=== PATIENT | female | born 1950 | race Two or more races ===

== ENCOUNTER 2024-10-31 13:23 | Outpatient (AMB) | payer MEDICARE, OTHER, SELFPAY ==
--- NOTE | 2024-10-31 14:12 | ORTHONT_ITS ---
Vital signs 10/31/24 14:26 BP 150/78 H Blood Pressure Source Automatic Cuff Blood Pressure Location Right Upper Arm Position Sitting Respiration 18 Pulse 90 Pulse Source Monitor Temp 97.8 F Temp Source Temporal Artery Scan Pulse Oximetry (%) 96 Oxygen Delivery Method Room Air Med/Allergies Allergies & Medications Allergies No Known Drug Allergies Allergy (Verified 10/31/24 14:26) Medication Reconciliation No Known Home Medications 10/31/24 [History Confirmed 10/31/24] Exam Exam Breathing is nonlabored. Patient has a normal mood and affect. Bilateral extremities were evaluated and demonstrates sensation intact to light touch. Palpable pedal pulses are present. No significant edema is present. Bilateral hips were examined. The patient has no pain with log roll of the hips. Internal rotation to 30 degrees and external rotation to 30 degrees is painless. Negative FADIR. Left knee was examined today. The left knee is in valgus alignment. Range of motion 0 to 110 degrees. She is tender to palpation diffusely The right knee was also examined. The right knee is in Valgus alignment. Range of motion from 0-115 degrees. Knee is stable to varus and valgus as well as AP translation with <5mm. Patient has a negative McMurrays. There is no pain with patellofemoral compression and no crepitus noted. The knee is tender to palpation Laterally Janice is a pleasant 74-year-old female with bilateral knee pain and bilateral knee arthritis. I reviewed x-rays from [facility]. This demonstrates bilateral lateral joint space narrowing and arthritis. She is in a wheelchair at this time and really struggles. She is significant valgus deformi ty. We thus discussed total knee replacement is a reasonable option. She has had over 10 injections on the right. We thus discussed total knee replacement as a reasonable option Assessment and Plan Problem List (1) Degenerative arthritis of knee, bilateral: Status: Acute Plan Janice is a pleasant 74-year-old female with bilateral knee pain and bilateral knee arthritis. I reviewed x-rays from [facility]. This demonstrates bilateral lateral joint space narrowing and arthritis. She is in a wheelchair at this time and really struggles. She is significant valgus deformity. We thus discussed total knee replacement is a reasonable option. She has had over 10 injections on the right. We thus discussed total knee replacement as a reasonable option The nature and purpose of the total knee replacement, alternative method(s) of treatment, the material risks involved, and the possibility of complications were fully explained to the patient. The patient does NOT have any of the following contraindications to TKA: - Active infection of the knee joint, OR - Active systemic bacteremia, OR - Active skin infection or open wound at surgical site, OR - Neuropathic arthritis, OR - Severe, rapidly progressive neurological disease, OR - Severe medical condition that makes risks of surgery outweigh the potential benefit The patient was told the most common risks and complications associated with a total knee replacement include, but are not limited to: blood clots in the leg, fatal pulmonary embolism, dislocation of the prosthesis, intraoperative and postoperative fractures of the femur or tibia, infection, failure of the prosthesis or grafting materials, complications from anesthesia, reactions to blood transfusions, postoperative leg length inequality, instability of the knee replacement, nerve damage or injury, vascular injury, delayed wound healing, infection, other injury or even . In addition, there are risks associated with anesthesia given during this operation. Also, the patient was told that after undergoing a total knee replacement there may still be persistent pain or disability. The patient was informed that the success of this operation in part depends upon the mechanical devices which are going to be implanted and that these devices can fail or malfunction, and may need to be repaired or replaced and there are no guarantees as to the longevity of this device or its parts and that it or its parts could fail prematurely. The patient was also notified that during the course of surgery, there may be a need to use bone graft from donors, and that any bone graft used will be carefully screened for communicable diseases, including AIDS, hepatitis, Armando-Creutzfeldt, or other diseases, but despite the screening procedures, there is a small chance that they could contract one of these diseases. Finally, the patient was asked to follow completely and fully with all advice and recommended treatments, and that recovery and ultimate outcome are affected by their compliance with recommended treatment. We discussed the risks, benefits and treatment alternatives, and the patient is interested in proceeding with surgery. We will try to set this up as expeditiously as possible. Advanced Care Planning Discussion Advance care planning discussed with:: patient Office Procedures GNS Level of Care Nursing/Assessment Patient Status: Established Patient Nursing Assessment/Reassesment: Medication Reconciliation, Update PMH in EMR and Vital Signs Coordination of Care: Complex Care and Chronic Disease 1-5, Education Complex Pt/Fam, Consent,records obtained, informed consent, Lab and Imaging orders, Results/Orders obtained and Staff clarify orders Established Patient Charge Established Patient Point Assignment: 110 Established Patient Point Charge: EP Level 3 (80-115) MA Intake Visit Data Collection New Patient or Established: New Patient (never been to [facility]) Reason for Visit:: KNEE PAIN Seen by Clinical Staff ONLY (RN/MA): No Verbal consent obtained for Telemed visit?: No Commissary Production Supervisor Required: No PCP or OBGYN visit in last 3 months: Yes Hx Now: No Do You Feel Safe at Home: Yes Authorities Contacted: N/A Questionairres Past Medical History Past Medical History Have you ever been diagnosed with any of the following: Subjective Visit Visit for: new patient and knee Immunization / Flu Flu Vaccine in the Last 12 Months: No Flu Vaccine Exclusion Criteria: Refused by Patient History of Present Illness Chief complaint: Janice is a pleasant 74-year-old female presenting to clinic with bilateral knee pain.Patient reports that knee pain has been present since 1994 and that she has been diagnosed with osteoarthritis.Patient reports she has used steroid Injections in the past to manage the painPatient reports she no longer uses steroid injections because they stopped working. Patient uses a walker at home and uses a wheelchair if she leaves the house. Patient is requesting bilateral total knee replacements. The right side is worse than the left Personal History Occupation: DISABLED Red flag PMH: none BMI Counceling provided: No Pain Pain level (0-10): 6 Pain duration: COMES AND GOES Pain location: inside (medial), outside (lateral), anterior and posterior Pain quality: sharp, dull, aching and burning Pain timing: increases with activity Ambulatory data Ambulatory device: none Treatments Improvement with previous injections: No Improvement with PT: No Improvement with NSAIDS: yes Review of Systems Review of Systems: All systems negative unless otherwise noted in HPI.
[2024-10-31 14:26] VITALS: BP 150/78; PULSE 90; RESP 18; TEMP 36.6; O2SAT 96
== END 2024-10-31 14:36 | disposition home or self-care (01) ==
PROVIDERS: PCP Family Medicine; Referring Provider Family Medicine; Supervising Provider Orthopaedic Surgery Adult Reconstructive Orthopaedic Surgery; Visit Provider Orthopaedic Surgery Adult Reconstructive Orthopaedic Surgery
DX: M17.0 Bilateral primary osteoarthritis of knee (principal); M25.562 Pain in left knee; M25.561 Pain in right knee; Z99.3 Dependence on wheelchair; M21.00 Valgus deformity, not elsewhere classified, unspecified site
CPT/HCPCS: 99213; G0463

== ENCOUNTER 2024-12-19 13:41 | Outpatient (AMB) | payer MEDICARE, OTHER, SELFPAY ==
[2024-12-19 14:03] VITALS: BP 142/74; PULSE 76; RESP 18; TEMP 36.3; O2SAT 97; BMI 36.1
--- NOTE | 2024-12-19 14:03 | PD.ORTHCLVIS ---
Vital signs 12/19/24 14:03 Height 1.52 m Height Method Stated Weight 83.915 kg Weight Measurement Method Estimated by Patient BMI 36.1 BP 142/74 H Blood Pressure Source Automatic Cuff Blood Pressure Location Left Upper Arm Position Sitting Respiration 18 Pulse 76 Pulse Source Monitor Temp 97.3 F Temp Source Temporal Artery Scan Pulse Oximetry (%) 97 Oxygen Delivery Method Room Air Med/Allergies Allergies & Medications Allergies No Known Drug Allergies Allergy (Verified 12/19/24 14:04) Medication Reconciliation No Known Home Medications 10/31/24 [History Confirmed 12/19/24] Exam Exam Breathing is nonlabored. Patient has a normal mood and affect. Bilateral extremities were evaluated and demonstrates sensation intact to light touch. Palpable pedal pulses are present. No significant edema is present. Bilateral hips were examined. The patient has no pain with log roll of the hips. Internal rotation to 30 degrees and external rotation to 30 degrees is painless. Negative FADIR. Left knee was examined today. The left knee is in valgus alignment. Range of motion 0 to 110 degrees. She is tender to palpation diffusely The right knee was also examined. The right knee is in Valgus alignment. Range of motion from 0-115 degrees. Knee is stable to varus and valgus as well as AP translation with <5mm. Patient has a negative McMurrays. There is no pain with patellofemoral compression and no crepitus noted. The knee is tender to palpation Laterally Janice is a pleasant 74-year-old female with bilateral knee pain and bilateral knee arthritis. I reviewed x-rays from [facility]. This demonstrates bilateral lateral joint space narrowing and arthritis. She is in a wheelchair at this time and really struggles. She is significant valgus deformity. We thus discussed total knee replacement is a reasonable option. She has had over 10 injections on the right. We thus discussed total knee replacement as a reasonable option Assessment and Plan Problem List (1) Degenerative arthritis of knee, bilateral: Status: Acute Plan Janice is a pleasant 74-year-old female with bilateral knee pain and bilateral knee arthritis. I reviewed x-rays from [facility]. This demonstrates bilateral lateral joint space narrowing and arthritis. She is in a wheelchair at this time and really struggles. She is significant valgus deformity. We thus discussed total knee replacement is a reasonable option. She has had over 10 injections on the right. We thus discussed total knee replacement as a reasonable option. We are currently still waiting for medical clearance. I would like to get new x-rays as it has been quite a while Advanced Care Planning Discussion Advance care planning discussed with:: patient Office Procedures GNS Level of Care Nursing/Assessment Patient Status: Established Patient Nursing Assessment/Reassesment: Medication Reconciliation, Update PMH in EMR and Vital Signs Coordination of Care: Complex Care and Chronic Disease 1-5, Education Complex Pt/Fam, Consent,records obtained, informed consent, Results/Orders obtained and Staff clarify orders Established Patient Charge Established Patient Point Assignment: 95 Established Patient Point Charge: EP Level 3 (80-115) MA Intake Visit Data Collection New Patient or Established: Established Patient (seen at [facility] within 3 years) Reason for Visit:: PRE OP R KNEE TKA Train Announcer Required: No PCP or OBGYN visit in last 3 months: Yes Hx Now: No Do You Feel Safe at Home: Yes Authorities Contacted: N/A Questionairres Past Medical History Past Medical History Have you ever been diagnosed with any of the following: Respiratory Problems Smoking: No Smoking Cessation Counseling: No Smoking Exposure: No Subjective Visit Visit for: follow up visit, knee and other (specify) (PRE OP ) Immunization / Flu Flu Vaccine in the Last 12 Months: No Flu Vaccine Exclusion Criteria: No Exclusion Criteria History of Present Illness Chief complaint: Janice is a pleasant 74-year-old female presenting to clinic with bilateral knee pain.Patient reports that knee pain has been present since 1994 and that she has been diagnosed with osteoarthritis.Patient reports she has used steroid Injections in the past to manage the painPatient reports she no longer uses steroid injections because they stopped working. Patient uses a walker at home and uses a wheelchair if she leaves the house. Patient is requesting bilateral total knee replacements. The right side is worse than the left Personal History Occupation: DISABLED Red flag PMH: none BMI Counceling provided: No Pain Pain level (0-10): 4 Pain duration: WITH MOVEMENT Pain location: inside (medial) and anterior Pain quality: dull and aching Pain timing: increases with activity and stairs Ambulatory data Ambulatory device: other (specify) (WHEEL CHAIR) Treatments Improvement with previous injections: No Improvement with PT: No Improvement with NSAIDS: no Review of Systems Review of Systems: All systems negative unless otherwise noted in HPI.
--- NOTE | 2024-12-19 14:05 | XR_ITS ---
Examination: Bilateral knees 2 views Right lateral knee left lateral knee 2 views Bilateral axial knees single view TECHNIQUE: Bilateral AP knees standing single view, bilateral PA knees standing single view 30 degrees flexion Standing right lateral knee left lateral knee 2 views Bilateral axial knees single view total 5 views Exam date and time: December 19, 2024 1411 hours INDICATIONS: Bilateral knee pain months. FINDINGS: Severe osteopenia Advanced bilateral tricompartment osteoarthritis, severe narrowing lateral joint spaces and patellofemoral joints No fractures IMPRESSION: Advanced bilateral tricompartment osteoarthritis
== END 2024-12-19 14:12 | disposition home or self-care (01) ==
LOC: HODSRG 13:41
PROVIDERS: PCP Family Medicine; Referring Provider Family Medicine; Supervising Provider Orthopaedic Surgery Adult Reconstructive Orthopaedic Surgery; Visit Provider Orthopaedic Surgery Adult Reconstructive Orthopaedic Surgery
DX: M17.0 Bilateral primary osteoarthritis of knee (principal)
CPT/HCPCS: 73564; 99213; G0463

== ENCOUNTER → 2025-01-05 | Outpatient (CLI) | payer MEDICARE, OTHER, SELFPAY ==
--- NOTE | 2025-01-05 09:08 | XR_ITS ---
Examination: CT right lower extremity, without contrast. 2-D sagittal reconstructions. 2-D coronal reconstructions. 3-D reconstructions. Date and time of exam:January 05, 2025 0931 hours INDICATIONS: Diagnosis right knee unilateral osteoarthritis knee pain several years CTDI: vol (mGy):12.9 DLP: (mGycm):860 Technique: Multiple 1.25 mm axial sections of the right lower extremity without intravenous contrast have been obtained. 2-D sagittal and coronal reconstructions have been obtained. 3-D reconstructions have been obtained. Low dose protocols were performed. One or more of the following dose reduction techniques were used; automated exposure control, adjustment of the mA and/or KV according to patient size, use of iterative reconstruction technique. Findings: Severe osteopenia Moderate narrowing hip joint No right hip fracture or dislocation Advanced tricompartment osteoarthritis right knee Severe narrowing medial joint space No fractures No patellar dislocation IMPRESSION: Advanced tricompartment osteoarthritis right knee
== END | disposition home or self-care (01) ==
PROVIDERS: PCP Internal Medicine; Referring Provider Orthopaedic Surgery Adult Reconstructive Orthopaedic Surgery; Visit Provider Orthopaedic Surgery Adult Reconstructive Orthopaedic Surgery
DX: M17.11 Unilateral primary osteoarthritis, right knee (principal)
CPT/HCPCS: 73700

== ENCOUNTER 2025-01-15 08:35 | Day surgery (SDC) | payer MEDICARE, OTHER, SELFPAY ==
[2025-01-11 09:22] VITALS: BMI 38.0
--- NOTE | 2025-01-11 09:34 | EKG_ITS ---
[facility] Test Date: 2025-01-11 Pat Name: KAI JACOME Department: Room: - Gender: Female [employer] Programmer: BOBBY : 1950 Requested By: Mumtaz Titus Order Number: [id number] Reading MD: Mumtaz Titus Measurements Intervals [place] Rate: 69 P: 70 [place]: 155 QRS: 15 QRSD: 97 T: 57 QT: 370 QTc: 397 Interpretive Statements SINUS RHYTHM POSSIBLE ANTERIOR MYOCARDIAL INFARCTION , PROBABLY OLD [30 ms Q WAVE IN V3/V4, OR R < 0.2 mV IN V4] No previous ECG available for comparison /store/S0/[id number].pdf
[2025-01-11 10:06] LABS: Basophils # (Auto) 0.1 Thou/mm3 (0.0-0.2); Basophils % (Auto) 1 % (0-2.5); Eosinophils # (Auto) 0.1 Thou/mm3 (0.0-0.5); Eosinophils % (Auto) 1 % (0-10); Hematocrit 40.8 % (36.0-46.0); Hemoglobin 13.7 g/dL (12.0-16.0); Immature Granulocytes % (Auto) 0 % (0-0); Immature Granulocytes Auto 0.02 Thou/mm3 (0.00-0.00); Lymphocytes # (Auto) 2.8 Thou/mm3 (1.0-4.8); Lymphocytes % (Auto) 37 % (10-50); Mean Corpuscular HGB Conc 33.6 g/dl (31.0-37.0); Mean Corpuscular Volume 86 fL (80-100); Monocytes # (Auto) 0.5 Thou/mm3 (0.0-0.8); Monocytes % (Auto) 7 % (0-12); Neutrophils # (Auto) 4.1 Thou/mm3 (1.8-7.7); Neutrophils % (Auto) 54 % (37-80); Nucleated Red Blood Cell % 0 /100 WBC (0); Platelet Count 228 Thou/mm3 (140-440); RDW Standard Deviation 41.9 fL (36.4-46.3); Red Blood Count 4.72 Miln/mm3 (4.00-5.20); White Blood Count 7.6 Thou/mm3 (3.6-11.0)
[2025-01-11 10:14] LABS: Partial Thromboplastin Time 26.3 Seconds (22.0-36.0)
[2025-01-11 10:17] LABS: Alanine Aminotransferase 35 U/L (10-49); Albumin, Serum 4.2 gm/dL (3.4-4.8); Albumin/Globulin Ratio 1.4 (1.2-2.2); Alkaline Phosphatase 111 U/L (46-116); Anion Gap 9 (7-16); Aspartate Amino Transferase 31 U/L (0-34); BUN/Creatinine Ratio 27 Ratio (12-20); Bilirubin,Total 0.6 mg/dL (0.3-1.2); Blood Urea Nitrogen 16 mg/dL (9-23); Calcium 10.1 mg/dL (8.3-10.6); Calcium (Corrected) 10.1 mg/dL (8.5-10.1); Carbon Dioxide 25.6 mMol/L (20.0-31.0); Chloride 107 mMol/L (98-107); Creatinine (Component) 0.6 mg/dL (0.6-1.3); Estimated Creatinine Clearance 75.7 mL/min (>60); Glucose 106 mg/dL (74-106); Osmolality,Calculated 284 (275-295); Sodium 142 mMol/L (136-145); Total Protein 7.2 gm/dL (5.7-8.2); eGFR > 60 See Note
[2025-01-15] VITALS (16 sets, daily range): BP systolic 103–171; BP diastolic 54–75; PULSE 74–106; RESP 16–20; TEMP 36.4–36.8; O2SAT 92–98; BMI 37.8; BMI 13.0
[2025-01-15] MEDS: ACETAMINOPHEN 325 MG TABLET 650 MG PO (11:02)
[2025-01-15] MEDS: MELOXICAM 7.5 MG TABLET PO (11:03)
[2025-01-15] MEDS: PREGABALIN 75 MG CAPSULE PO (11:04)
[2025-01-15] MEDS: RINGERS LACTATED 1000 ML 1,000 ML 20 ML IV (11:04)
--- NOTE | 2025-01-15 11:07 | SUR.PREOP ---
Patient expressed gratitude for prayer before her procedure.
--- NOTE | 2025-01-15 13:52 | PD.SUROPNT ---
Date of Procedure 01/15/25 Pre Op Diagnosis right knee osteoarthritis Post Op Diagnosis right knee osteoarthritis Procedure right total knee replacement mau Findings full thickness cartilage loss and osteophytes, valgus deformity, preop ROM 30-60 degrees Procedure Description Indication: The patient is a 74 year old who has a long history of right knee pain. X-rays show degenerative arthritis involving the knee. Over the past several years the patient has had increasing pain, progressive limitation in function. He has failed conservative measures including activity modification, physical therapy, injections, anti-inflammatories, and assistive devices. After a lengthy discussion of the risks and benefits, the patient presents now for total knee replacement. The nature and purpose of the total knee replacement, alternative method(s) of treatment, the material risks involved, and the possibility of complications were fully explained to the patient. The patient was told the most common risks and complications associated with a total knee replacement include, but are not limited to blood clots in the leg, fatal pulmonary embolism, dislocation of the prosthesis, intraoperative and postoperative fractures of the femur or tibia, infection, failure of the prosthesis or grafting materials, complications from anesthesia, reactions to blood transfusions, postoperative leg length inequality, instability of the knee replacement, nerve damage or injury, vascular injury, delayed wound healing, infections, other injury or even . In addition, there are risks associated with anesthesia given during this operation, temporary or permanent numbness on the skin lateral to the incision can be a complication unique to total knee surgery, and kneeling can be painful after knee replacement surgery. Also, the patient was told that after undergoing a total knee replacement there may still be pain or disability. We discussed with the patient that we will be using a robot-assisted technology. We discussed that there is a possibility of converting to manual instrumentation. The patient was informed that the success of this operation in part depends upon the mechanical devices which are going to be implanted and that these devices can fail or malfunction, and may need to be repaired or replaced and there are no guarantees as to the longevity of this device or its part and that it or its parts could fail prematurely. Finally, the patient was asked to follow completely and fully with all advice and recommended treatments, and that recovery and ultimate outcome are affected by their compliance with recommended treatment. Surgical technique: Patient was marked and consented in the pre-operative area. The patient was brought to the operating room and placed on the operating table in a supine position. Prior to positioning, a timeout procedure was performed between the surgeon, the anesthesiologist, and the nursing staff where the patient and the operative side were identified and confirmed. After adequate general anesthetic was obtained, the right lower extremity was prepped and draped in the usual sterile fashion. A weight based dose of Cefazolin were administered within 1 hour prior to incision. The robot was preregistered and calirated before the incision. The extremity was exsanguinated with an esmarch badge and tourniquet inflated to 250mmHg. A midline incision was made. A median parapatellar arthrotomy was made. The patella was subluxed laterally. A medial release was performed to expose the medial tibia. His femoral and tibial pins were placed through an intra incisional manner for both cases. Every effort was made to ensure that the distalmost aspect of the pin was hung in the second cortex. The arrays were then tightened several times to ensure that it was fixed for the remainder of the case. Both femoral and tibial checkpoints were then placed. We then went through the registration process of the bone. We then assessed the knee deformity and attempted to correct it. We also used the robot to aid in judging laxity in both extension and flexion. Final based on laxity and alignment we changed the preoperative assessment to obtain proper proper implant positioning and to correct deformity. Attention was then placed to the tibia. We made a tibial cut using the robot ensuring that both the MCL and the patella tendon were protected with retractors. We then went to the femur and made the posterior cut followed by the anterior cut and the anterior chamfer. The bone was then removed and we made a distal femur cut and a posterior chamfer cut. We verified all cuts. A trial reduction was performed with a size 2 femoral component and a size 2 keeled tibial component. We prepared the tibia for a 50mm stem given the deformity. The patella was not cut as it was too thin. The patella tracked centrally, and no lateral retinacular release was necessary. The trial implants were removed. The arrays, pins, and checkpoints were all removed. We performed a verification that all pins were removed. The cut bone surfaces were lavaged. A size 2 right femoral component, a size 2 keeled tibial component were impacted into position using 2 bags of palacos. A trial insert was placed The knee was placed in extension until the cement hardened. The knee was felt to be well balanced in the sagittal and coronal plane. The final 3x10 mm posterior-substituting articular insert was impacted into the tibial tray. The knee was brought out to full extension, flexed up to 120 degrees. It was stable to varus and valgus stress and appropriately balanced in flexion and extension. The wounds were copiously irrigated following deflation of tourniquet. The medial retinaculum was reapproximated with #1 vicryl and quill. The subcutaneous tissues were closed with 0 and 2-0 interrupted Vicryl. The skin was closed with 3-0 Monofilament V loc suture. A sterile dressing was applied. The patient was transferred to a bed and brought to recovery in stable condition. The patient tolerated the procedure well. There were no intraoperative complications. Sponge and needle counts were correct times 2. As the attending surgeon, I attest I was present and performed the entire operation. Grafts/Implants Size 2 CR Femur Size 2 Tibia 10mm poly CS 2 bags of palacos We will put her in a knee immobilizer for 2 weeks given the quality of her soft tissues Anesthesia GETA Implants michael Pathology / specimen None Pathology comment: none Estimated Blood Loss 150 Condition Stable Disposition same day Surgeon Vasu Church MD Surgical Staff Operation Date: 01/15/25 13:45 Case Staff HEAVY EQUIPMENT SERVICE MANAGER: Bal Serna RNcustoms patrol officer: Bailee Lucas
--- NOTE | 2025-01-15 13:57 | XR_ITS ---
Examination: right knee 2 views TECHNIQUE: AP lateral right knee 2 views Exam date and time: January 15, 2025 1436 hours INDICATIONS: Postop knee replacement today. FINDINGS: Total right knee arthroplasty. Satisfactory alignment. Prominent osteopenia. No fracture IMPRESSION: Total right knee arthroplasty with satisfactory alignment
--- NOTE | 2025-01-15 14:29 | SUR.PHASEI ---
1429: Pt. AAOx4, vitals stable, breathing unlabored, no complaint of pain or nausea, dressing to right knee CDI, knee immobilizer in place, bilateral dorsalis pedis pulses strong and regular, cap refill to bilateral feet less than 3 seconds, pt. able to wiggle bilateral feet, report received from Bal MOSLEY and Oj ALLEN.
[2025-01-15] MEDS: ONDANSETRON INJ 2 MG/ML INJ 2 ML 4 MG IV (15:55)
--- NOTE | 2025-01-15 16:32 | SUR.PHASEII ---
pt lying in bed with eyes open, breathing unlabored, dressing to right lower extremity clean, dry, and intact with knee immobilizer in place, bilateral pedal pulses present and equal, no complaints of pain, report from Kaitlin ALLEN
--- NOTE | 2025-01-15 16:35 | SUR.PHASEII ---
Salena PT at bedside, pt unhooked to complete physical therapy session
--- NOTE | 2025-01-15 16:45 | SUR.PHASEII ---
pt o2 saturation WNL with portable spo2 monitor during physical therapy.
--- NOTE | 2025-01-15 17:15 | SUR.PHASEII ---
pt awake, alert, able to follow commands, breathing unlabored, dressing to right lower extremity clean, dry, and intact, discharge instructions given by Kaitlin ALLEN with sons present, pt able to ambulate with PT, pt discharged via wheelchair with all belongings and copies of discharge paperwork.
== END 2025-01-15 17:15 | disposition home or self-care (01) ==
PROVIDERS: Anesthesiology; PCP Internal Medicine; Referring Provider Orthopaedic Surgery Adult Reconstructive Orthopaedic Surgery; Visit Provider Orthopaedic Surgery Adult Reconstructive Orthopaedic Surgery
PROC: (CPT 27447; principal; 2025-01-15 13:30)
DX: M17.11 Unilateral primary osteoarthritis, right knee (principal); M25.761 Osteophyte, right knee
CPT/HCPCS: 27447; 20985; 36415; 73560; 80053; 85025; 85610; 85730; 93005; 97162; A4217; C1713; C1776; J0690; J1100; J2250; J2371; J2405; J2704; J3010; J3490; J7030; J7120; J7999; L1832; A4648; A4649; A9270

== ENCOUNTER 2025-01-30 13:05 | Outpatient (AMB) | payer MEDICARE, OTHER, SELFPAY ==
[2025-01-30 13:19] VITALS: BP 122/80; PULSE 110; RESP 17; TEMP 36.3; O2SAT 94; BMI 37.3
--- NOTE | 2025-01-30 13:19 | PD.ORTHCLVIS ---
Vital signs 01/30/25 13:19 Height 1.5 m Height Method Stated Weight 83.915 kg Weight Measurement Method Standing Scale BMI 37.3 BP 122/80 Blood Pressure Source Automatic Cuff Blood Pressure Location Left Upper Arm Position Sitting Respiration 17 Pulse 110 H Pulse Source Monitor Temp 97.3 F Temp Source Temporal Artery Scan Pulse Oximetry (%) 94 L Oxygen Delivery Method Room Air Med/Allergies Allergies & Medications Allergies hydrochlorothiazide Allergy (Verified 01/30/25 13:20) lisinopril Allergy (Verified 01/30/25 13:20) triamterene Allergy (Verified 01/30/25 13:20) Medication Reconciliation cholecalciferol (vitamin D3) 125 mcg (5,000 unit) tablet (Vitamin D3) 125 mcg PO QDAY 01/11/25 [History Confirmed 01/30/25] cinnamon bark 500 mg capsule (Cinnamon) 500 mg PO QDAY 01/11/25 [History Confirmed 01/30/25] cyanocobalamin (vitamin B-12) 1,000 mcg/mL oral drops (Vitamin B-12) 1 ml PO QDAY 01/11/25 [History Confirmed 01/30/25] multivit with minerals-iron 18 mg-folic ac 400 mcg-vit K 25 mcg tablet (Adults Multivitamin) 1 tab PO DAILY 01/11/25 [History Confirmed 01/30/25] acetaminophen 500 mg tablet (Acetaminophen Extra Strength) 1,000 mg (2 x 500 mg) PO Q6H PRN pain #90 tabs 01/15/25 [Rx Confirmed 01/30/25] aspirin 81 mg tablet,delayed release 81 mg PO BID #60 tabs 01/15/25 [Rx Confirmed 01/30/25] doxycycline hyclate 100 mg tablet 100 mg PO BID #14 tabs 01/15/25 [Rx Confirmed 01/30/25] gabapentin 300 mg capsule 300 mg PO .qhs #30 caps 01/15/25 [Rx Confirmed 01/30/25] oxycodone 5 mg tablet 5 mg PO Q6H PRN pain #28 tabs 01/15/25 [Rx Confirmed 01/30/25] sennosides 8.6 mg-docusate sodium 50 mg tablet (Senna-S) 1 tab-cap PO QDAY #30 tabs 01/15/25 [Rx Confirmed 01/30/25] Exam Exam Breathing is nonlabored. Patient has a normal mood and affect. Bilateral extremities were evaluated and demonstrates sensation intact to light touch. Palpable pedal pulses are present. No significant edema is present. Bilateral hips were examined. The patient has no pain with log roll of the hips. Internal rotation to 30 degrees and external rotation to 30 degrees is painless. Negative FADIR. Left knee was examined today. The left knee is in valgus alignment. Range of motion 0 to 110 degrees. She is tender to palpation diffusely The right knee was also examined. Right knee incision is clean dry and intact Assessment and Plan Problem List (1) Degenerative arthritis of knee, bilateral: Status: Acute Plan Janice is a pleasant 74-year-old female with bilateral knee pain and bilateral knee arthritis. She is status post right total knee replacement and is doing well. She is walking with a walker. She should transition outpatient physical therapy in clinic. DVT prophylaxis Advanced Care Planning Discussion Advance care planning discussed with:: patient Office Procedures GNS Level of Care Nursing/Assessment Patient Status: Established Patient Nursing Assessment/Reassesment: Medication Reconciliation and Update PMH in EMR Coordination of Care: Complex Care and Chronic Disease 1-5, Consent,records obtained, informed consent, Education Simp Pt/Fam, Results/Orders obtained and Staff clarify orders Established Patient Charge Established Patient Point Assignment: 75 Established Patient Point Charge: EP Level 2 (40-75) MA Intake Visit Data Collection New Patient or Established: Established Patient (seen at [facility] within 3 years) Reason for Visit:: 2 WK POST OP RT TKA Seen by Clinical Staff ONLY (RN/MA): No 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 PCP or OBGYN visit in last 3 months: Yes Hx Now: No Do You Feel Safe at Home: Yes Authorities Contacted: N/A Questionairres Past Medical History Past Medical History Have you ever been diagnosed with any of the following: Neurological Problems Seizures: No Cardiology Problems Congestive Heart Failure: No Respiratory Problems Chronic Obstructive Pulmonary Disease (COPD): No Smoking: No Smoking Cessation Counseling: No Smoking Exposure: No Stomache/Intestinal Problems Hepatitis: No Obesity: Yes Genital/Urinary Problems Renal Disease: No Kidney Stones: Yes Reproductive Problems Previous Pregnancies: Yes (3) Musculoskeletal Problems Arthritis: Yes Endocrine Problems Diabetes Mellitus Type 1: No Diabetes Mellitus Type 2: No Other Problems Hospitalization: Yes (surgery) Shingles: No Blood Transfusions: No Blood Transfusion Reaction: No Anesthesia Reactions: No Chicken Pox: Yes Measles: Yes Mumps: Yes Cancer: No Surgical History Hysterectomy: Yes Subjective Visit Visit for: follow up visit and post op #1 (2 WK POST OP RT TKA) Immunization / Flu Flu Vaccine in the Last 12 Months: Yes Flu Vaccine Exclusion Criteria: Already Received History of Present Illness Chief complaint: Right total knee replacement Janice is now 2 weeks status post right total knee replacement. She is doing well. She is walking with a walker and is happy Personal History Red flag PMH: none Pain Pain level (0-10): 8 Pain duration: 1 DAY Pain quality: aching Pain timing: night and increases with activity (THROUGHOUT THE DAY ) Associated signs & symptoms: none Ambulatory data Ambulatory device: other (specify) (ELECTRIC WHEELCHAIR) Treatments Number of previous injections: 2 Improvement with previous injections: No Number of Physical Therapy sessions: 0 Improvement with NSAIDS: n/a Review of Systems Review of Systems: All systems negative unless otherwise noted in HPI.
== END 2025-01-30 13:33 | disposition home or self-care (01) ==
LOC: HODSRG 13:05
PROVIDERS: PCP Internal Medicine; Referring Provider Internal Medicine; Supervising Provider Orthopaedic Surgery Adult Reconstructive Orthopaedic Surgery; Visit Provider Orthopaedic Surgery Adult Reconstructive Orthopaedic Surgery
DX: M17.0 Bilateral primary osteoarthritis of knee (principal); M25.562 Pain in left knee; M25.561 Pain in right knee; Z96.651 Presence of right artificial knee joint
CPT/HCPCS: 99212; G0463

== ENCOUNTER 2025-03-15 13:49 | Outpatient (AMB) | payer MEDICARE, OTHER, SELFPAY ==
[2025-03-15 14:04] VITALS: BP 154/70; PULSE 78; RESP 17; TEMP 35.9; O2SAT 94; BMI 35.6
--- NOTE | 2025-03-15 14:04 | PD.ORTHCLVIS ---
Vital signs 03/15/25 14:04 Height 1.5 m Height Method Stated Weight 80.286 kg Weight Measurement Method Standing Scale BMI 35.6 BP 154/70 H Blood Pressure Source Automatic Cuff Blood Pressure Location Left Upper Arm Position Sitting Respiration 17 Pulse 78 Pulse Source Monitor Temp 96.7 F L Temp Source Temporal Artery Scan Pulse Oximetry (%) 94 L Oxygen Delivery Method Room Air Med/Allergies Allergies & Medications Allergies hydrochlorothiazide Allergy (Verified 03/15/25 14:07) lisinopril Allergy (Verified 03/15/25 14:07) triamterene Allergy (Verified 03/15/25 14:07) Medication Reconciliation cholecalciferol (vitamin D3) 125 mcg (5,000 unit) tablet (Vitamin D3) 125 mcg PO QDAY 01/11/25 [History Confirmed 03/15/25] cinnamon bark 500 mg capsule (Cinnamon) 500 mg PO QDAY 01/11/25 [History Confirmed 03/15/25] cyanocobalamin (vitamin B-12) 1,000 mcg/mL oral drops (Vitamin B-12) 1 ml PO QDAY 01/11/25 [History Confirmed 03/15/25] multivit with minerals-iron 18 mg-folic ac 400 mcg-vit K 25 mcg tablet (Adults Multivitamin) 1 tab PO DAILY 01/11/25 [History Confirmed 03/15/25] acetaminophen 500 mg tablet (Acetaminophen Extra Strength) 1,000 mg (2 x 500 mg) PO Q6H PRN pain #90 tabs 01/15/25 [Rx Confirmed 03/15/25] aspirin 81 mg tablet,delayed release 81 mg PO BID #60 tabs 01/15/25 [Rx Confirmed 03/15/25] doxycycline hyclate 100 mg tablet 100 mg PO BID #14 tabs 01/15/25 [Rx Confirmed 03/15/25] gabapentin 300 mg capsule 300 mg PO .qhs #30 caps 01/15/25 [Rx Confirmed 03/15/25] oxycodone 5 mg tablet 5 mg PO Q6H PRN pain #28 tabs 01/15/25 [Rx Confirmed 03/15/25] sennosides 8.6 mg-docusate sodium 50 mg tablet (Senna-S) 1 tab-cap PO QDAY #30 tabs 01/15/25 [Rx Confirmed 03/15/25] hydrocodone 5 mg-acetaminophen 325 mg tablet 1 tab PO Q6H PRN pain #28 tabs 02/13/25 [Rx Confirmed 03/15/25] amoxicillin 500 mg capsule 2,000 mg (4 x 500 mg) PO .once #16 caps 03/15/25 [Rx] Exam Exam Breathing is nonlabored. Patient has a normal mood and affect. Bilateral extremities were evaluated and demonstrates sensation intact to light touch. Palpable pedal pulses are present. No significant edema is present. Bilateral hips were examined. The patient has no pain with log roll of the hips. Internal rotation to 30 degrees and external rotation to 30 degrees is painless. Negative FADIR. Left knee was examined today. The left knee is in valgus alignment. Range of motion 0 to 110 degrees. She is tender to palpation diffusely The right knee was also examined. Right knee incision is clean dry and intact. Range of motion is 0 to 105 degrees Assessment and Plan Problem List (1) Degenerative arthritis of knee, bilateral: Status: Acute Plan Janice is a pleasant 74-year-old female with bilateral knee pain and bilateral knee arthritis. She is status post right total knee replacement and is doing well. She is doing well with outpatient physical therapy We will see her back in approximately 2 months. Advanced Care Planning Discussion Advance care planning discussed with:: patient Office Procedures GNS Level of Care Nursing/Assessment Patient Status: Established Patient Nursing Assessment/Reassesment: Medication Reconciliation, Update PMH in EMR and Vital Signs Coordination of Care: Complex Care and Chronic Disease 1-5, Education Complex Pt/Fam, Consent,records obtained, informed consent, Results/Orders obtained and Staff clarify orders Established Patient Charge Established Patient Point Assignment: 95 Established Patient Point Charge: EP Level 3 (80-115) MA Intake Visit Data Collection New Patient or Established: Established Patient (seen at 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 PCP or OBGYN visit in last 3 months: Yes Hx Now: No Do You Feel Safe at Home: Yes Authorities Contacted: N/A Questionairres Past Medical History Past Medical History Have you ever been diagnosed with any of the following: Neurological Problems Seizures: No Cardiology Problems Congestive Heart Failure: No Respiratory Problems Chronic Obstructive Pulmonary Disease (COPD): No Smoking: No Smoking Cessation Counseling: No Smoking Exposure: No Stomache/Intestinal Problems Hepatitis: No Obesity: Yes Genital/Urinary Problems Renal Disease: No Kidney Stones: Yes Reproductive Problems Previous Pregnancies: Yes (3) Musculoskeletal Problems Arthritis: Yes Endocrine Problems Diabetes Mellitus Type 1: No Diabetes Mellitus Type 2: No Other Problems Hospitalization: Yes (surgery) Shingles: No Blood Transfusions: No Blood Transfusion Reaction: No Anesthesia Reactions: No Chicken Pox: Yes Measles: Yes Mumps: Yes Cancer: No Surgical History Hysterectomy: Yes Subjective Visit Visit for: follow up visit and post op #2 (4 WEEK RT TKA ) Immunization / Flu Flu Vaccine in the Last 12 Months: Yes Flu Vaccine Exclusion Criteria: Already Received History of Present Illness Chief complaint: Right total knee replacement Janice is now 7 weeks status post right total knee replacement. She is doing well. She is walking with a walker and is happy Personal History Red flag PMH: none Pain Pain level (0-10): 8 Pain duration: 1 DAY Pain location: anterior Pain quality: burning and tingling Pain timing: night and increases with activity Associated signs & symptoms: numbness Ambulatory data Ambulatory device: walker Walking distance (minutes): 19 Treatments Number of previous injections: 6 Improvement with previous injections: No Number of Physical Therapy sessions: 2 Improvement with PT: No Improvement with NSAIDS: n/a Review of Systems Review of Systems: All systems negative unless otherwise noted in HPI.
== END 2025-03-15 14:31 | disposition home or self-care (01) ==
LOC: HODSRG 13:49
PROVIDERS: PCP Internal Medicine; Referring Provider Internal Medicine; Supervising Provider Orthopaedic Surgery Adult Reconstructive Orthopaedic Surgery; Visit Provider Orthopaedic Surgery Adult Reconstructive Orthopaedic Surgery
DX: M17.0 Bilateral primary osteoarthritis of knee (principal); M25.562 Pain in left knee; M25.561 Pain in right knee; Z96.651 Presence of right artificial knee joint
CPT/HCPCS: 99213; G0463

== ENCOUNTER 2025-05-15 13:34 | Outpatient (AMB) | payer MEDICARE, OTHER, SELFPAY ==
--- NOTE | 2025-05-15 13:38 | ORTHONT_ITS ---
Vital signs 05/15/25 13:41 Height 1.5 m Height Method Stated Weight 79.832 kg Weight Measurement Method Standing Scale BMI 35.4 BP 141/83 H Blood Pressure Source Automatic Cuff Blood Pressure Location Left Upper Arm Position Sitting Respiration 19 Pulse 83 Pulse Source Monitor Temp 97.7 F Temp Source Temporal Artery Scan Pulse Oximetry (%) 95 Oxygen Delivery Method Room Air Med/Allergies Allergies & Medications Allergies hydrochlorothiazide Allergy (Verified 05/15/25 13:42) lisinopril Allergy (Verified 05/15/25 13:42) triamterene Allergy (Verified 05/15/25 13:42) Medication Reconciliation cholecalciferol (vitamin D3) 125 mcg (5,000 unit) tablet (Vitamin D3) 125 mcg PO QDAY 01/11/25 [History Confirmed 05/15/25] cinnamon bark 500 mg capsule (Cinnamon) 500 mg PO QDAY 01/11/25 [History Confirmed 05/15/25] cyanocobalamin (vitamin B-12) 1,000 mcg/mL oral drops (Vitamin B-12) 1 ml PO QDAY 01/11/25 [History Confirmed 05/15/25] multivit with minerals-iron 18 mg-folic ac 400 mcg-vit K 25 mcg tablet (Adults Multivitamin) 1 tab PO DAILY 01/11/25 [History Confirmed 05/15/25] acetaminophen 500 mg tablet (Acetaminophen Extra Strength) 1,000 mg (2 x 500 mg) PO Q6H PRN pain #90 tabs 01/15/25 [Rx Confirmed 05/15/25] aspirin 81 mg tablet,delayed release 81 mg PO BID #60 tabs 01/15/25 [Rx Confirmed 05/15/25] doxycycline hyclate 100 mg tablet 100 mg PO BID #14 tabs 01/15/25 [Rx Confirmed 05/15/25] gabapentin 300 mg capsule 300 mg PO .qhs #30 caps 01/15/25 [Rx Confirmed 05/15/25] oxycodone 5 mg tablet 5 mg PO Q6H PRN pain #28 tabs 01/15/25 [Rx Confirmed 05/15/25] sennosides 8.6 mg-docusate sodium 50 mg tablet (Senna-S) 1 tab-cap PO QDAY #30 tabs 01/15/25 [Rx Confirmed 05/15/25] hydrocodone 5 mg-acetaminophen 325 mg tablet 1 tab PO Q6H PRN pain #28 tabs 02/13/25 [Rx Confirmed 05/15/25] amoxicillin 500 mg capsule 2,000 mg (4 x 500 mg) PO .once #16 caps 03/15/25 [Rx Confirmed 05/15/25] Exam Exam Breathing is nonlabored. Patient has a normal mood and affect. Bilateral extremities were evaluated and demonstrates sensation intact to light touch. Palpable pedal pulses are present. No significant edema is present. Bilateral hips were examined. The patient has no pain with log roll of the hips. Internal rotation to 30 degrees and external rotation to 30 degrees is painless. Negative FADIR. Left knee was examined today. The left knee is in valgus alignment. Range of motion 0 to 110 degrees. She is tender to palpation diffusely The right knee was also examined. Right knee incision is clean dry and intact. Range of motion is 0 to 105 degrees. However, there is a 30 degree extensor lag. The patella is felt to be superiorly migrated. The knee is tender to palpation over the patella tendon Right knee x-rays demonstrate a posterior stabilized total knee replacement good line position. However, the patella is migrated superiorly consistent with a patella tendon rupture Assessment and Plan Problem List (1) Degenerative arthritis of knee, bilateral: Status: Acute (2) Status post total right knee replacement: Status: Acute (3) Patellar tendon rupture: Status: Acute Plan: Janice is a pleasant 75-year-old female who is 4 months status post right total knee replacement. She did well up until 3 weeks ago where she appears to have a patella tendon rupture doing active straight leg raises. She reports that she does this every 5 minutes for about 10 times. Interestingly, she she was told by her therapist that she was doing this too frequently. She does have a 30 degree extension lag and has a patella tendon rupture. I discussed with her that there are several options. We discussed nonoperative treatment with a knee immobilizer as well as surgical treatment including both a primary repair and possible Marlex repair augmentation given the fact that it has now been 3 weeks. I discussed the surgical option with the patient and she does not want to undergo this. She reports that she is happy with her current progress even though she has an extensor mechanism lag. She reports her left knee is considerably worse and that she does not want to undergo further surgery on the right. She is happy with her current function reports she can still walk and ride a bike and that this is good enough for her. I discussed with her the risk and benefits of surgery in great detail and she would like to proceed with conservative treatment. We will thus give her a knee immobilizer for 4 weeks before attempting further physical therapy Plan We will continue with immobilization in a knee brace and put physical therapy on hold given the recent patella tendon rupture Advanced Care Planning Discussion Advance care planning discussed with:: patient Office Procedures GNS Level of Care Nursing/Assessment Patient Status: Established Patient Nursing Assessment/Reassesment: Medication Reconciliation, Update PMH in EMR and Vital Signs Coordination of Care: Complex Care and Chronic Disease 1-5, Education Complex Pt/Fam, Consent,records obtained, informed consent, Results/Orders obtained and Staff clarify orders Established Patient Charge Established Patient Point Assignment: 95 Established Patient Point Charge: EP Level 3 (80-115) MA Intake Visit Data Collection New Patient or Established: Established Patient (seen at [facility] within 3 years) Reason for Visit:: RT TKA F/U Seen by Clinical Staff ONLY (RN/MA): No 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 PCP or OBGYN visit in last 3 months: Yes Hx Now: No Do You Feel Safe at Home: Yes Authorities Contacted: N/A Questionairres Past Medical History Past Medical History Have you ever been diagnosed with any of the following: Neurological Problems Seizures: No Cardiology Problems Congestive Heart Failure: No Respiratory Problems Chronic Obstructive Pulmonary Disease (COPD): No Smoking: No Smoking Cessation Counseling: No Smoking Exposure: No Stomache/Intestinal Problems Hepatitis: No Obesity: Yes Genital/Urinary Problems Renal Disease: No Kidney Stones: Yes Reproductive Problems Previous Pregnancies: Yes (3) Musculoskeletal Problems Arthritis: Yes Endocrine Problems Diabetes Mellitus Type 1: No Diabetes Mellitus Type 2: No Other Problems Hospitalization: Yes (surgery) Shingles: No Blood Transfusions: No Blood Transfusion Reaction: No Anesthesia Reactions: No Chicken Pox: Yes Measles: Yes Mumps: Yes Cancer: No Surgical History Total Knee Replacement: Yes (RIGHT 2024) Hysterectomy: Yes Subjective Visit Visit for: follow up visit, post op #3 and knee (RIGHT) Immunization / Flu Flu Vaccine in the Last 12 Months: Yes Flu Vaccine Exclusion Criteria: Already Received History of Present Illness Chief complaint: Right total knee replacement aJnice is now 4 months status post right total knee replacement. She is doing well. She reports that she was doing very well until 3 weeks ago when she was doing quad exercises in her recliner. She reports that she had a sudden increase in pain which has resolved somewhat. She is able to walk but reports that something has changed. She is still riding her bike and did so today. She reports the left knee pain still hurts more than the right Personal History Red flag PMH: none Pain Pain level (0-10): 0 Pain duration: 1 DAY Pain location: anterior Pain quality: burning and tingling Pain timing: night and increases with activity Associated signs & symptoms: stiffness Ambulatory data Ambulatory device: other (specify) (WHEEL CHAIR) Walking distance (minutes): 10 Treatments Number of previous injections: 6 Improvement with previous injections: No Number of Physical Therapy sessions: 2 Improvement with PT: No Improvement with NSAIDS: n/a Review of Systems Review of Systems: All systems negative unless otherwise noted in HPI.
[2025-05-15 13:41] VITALS: BP 141/83; PULSE 83; RESP 19; TEMP 36.5; O2SAT 95; BMI 35.4
== END 2025-05-15 14:04 | disposition home or self-care (01) ==
LOC: HODSRG 13:34
PROVIDERS: PCP Internal Medicine; Referring Provider Internal Medicine; Supervising Provider Orthopaedic Surgery Adult Reconstructive Orthopaedic Surgery; Visit Provider Orthopaedic Surgery Adult Reconstructive Orthopaedic Surgery
DX: M17.0 Bilateral primary osteoarthritis of knee (principal); Z96.651 Presence of right artificial knee joint
CPT/HCPCS: 99213; G0463

== ENCOUNTER → 2025-05-15 | Outpatient (CLI) | payer MEDICARE, OTHER, SELFPAY ==
--- NOTE | 2025-05-15 | XR_ITS ---
Examination: Bilateral AP knees single view Right knee PA lateral axial 3 views TECHNIQUE: Bilateral AP knees standing single view Right knee standing PA flexion, lateral standing, axial right knee 3 views total 4 views Date and time: May 15, 2025 1317 hours INDICATIONS: Knee pain years. FINDINGS: Prominent osteopenia Total right knee arthroplasty. Satisfactory alignment. No loosening of the prosthetic components. Severe narrowing lateral joint space left knee No fractures IMPRESSION: Total right knee arthroplasty with satisfactory alignment Severe narrowing lateral joint space left knee
== END | disposition home or self-care (01) ==
LOC: CDIM 11:53
PROVIDERS: PCP Family Medicine; Referring Provider Orthopaedic Surgery Adult Reconstructive Orthopaedic Surgery; Visit Provider Orthopaedic Surgery Adult Reconstructive Orthopaedic Surgery
DX: M25.862 Other specified joint disorders, left knee (principal); Z96.651 Presence of right artificial knee joint
CPT/HCPCS: 73564

== ENCOUNTER 2025-06-12 14:58 | Outpatient (AMB) | payer MEDICARE, OTHER, SELFPAY ==
--- NOTE | 2025-06-12 15:07 | ORTHONT_ITS ---
Vital signs 06/12/25 15:08 Height 1.5 m Height Method Measured Weight 79 kg Weight Measurement Method Estimated by Patient BMI 35.1 BP 121/74 Blood Pressure Source Automatic Cuff Blood Pressure Location Left Upper Arm Position Sitting Respiration 18 Pulse 74 Pulse Source Monitor Temp 98.1 F Temp Source Temporal Artery Scan Pulse Oximetry (%) 94 L Oxygen Delivery Method Room Air Med/Allergies Allergies & Medications Allergies hydrochlorothiazide Allergy (Verified 06/12/25 15:08) lisinopril Allergy (Verified 06/12/25 15:08) triamterene Allergy (Verified 06/12/25 15:08) Medication Reconciliation cholecalciferol (vitamin D3) 125 mcg (5,000 unit) tablet (Vitamin D3) 125 mcg PO QDAY 01/11/25 [History Confirmed 06/12/25] cinnamon bark 500 mg capsule (Cinnamon) 500 mg PO QDAY 01/11/25 [History Confirmed 06/12/25] cyanocobalamin (vitamin B-12) 1,000 mcg/mL oral drops (Vitamin B-12) 1 ml PO QDAY 01/11/25 [History Confirmed 06/12/25] multivit with minerals-iron 18 mg-folic ac 400 mcg-vit K 25 mcg tablet (Adults Multivitamin) 1 tab PO DAILY 01/11/25 [History Confirmed 06/12/25] acetaminophen 500 mg tablet (Acetaminophen Extra Strength) 1,000 mg (2 x 500 mg) PO Q6H PRN pain #90 tabs 01/15/25 [Rx Confirmed 06/12/25] aspirin 81 mg tablet,delayed release 81 mg PO BID #60 tabs 01/15/25 [Rx Confirmed 06/12/25] doxycycline hyclate 100 mg tablet 100 mg PO BID #14 tabs 01/15/25 [Rx Confirmed 06/12/25] gabapentin 300 mg capsule 300 mg PO .qhs #30 caps 01/15/25 [Rx Confirmed 06/12/25] oxycodone 5 mg tablet 5 mg PO Q6H PRN pain #28 tabs 01/15/25 [Rx Confirmed 06/12/25] sennosides 8.6 mg-docusate sodium 50 mg tablet (Senna-S) 1 tab-cap PO QDAY #30 tabs 01/15/25 [Rx Confirmed 08/26/25] hydrocodone 5 mg-acetaminophen 325 mg tablet 1 tab PO Q6H PRN pain #28 tabs 02/13/25 [Rx Confirmed 06/12/25] amoxicillin 500 mg capsule 2,000 mg (4 x 500 mg) PO .once #16 caps 03/15/25 [Rx Confirmed 06/12/25] Exam Exam Breathing is nonlabored. Patient has a normal mood and affect. Bilateral extremities were evaluated and demonstrates sensation intact to light touch. Palpable pedal pulses are present. No significant edema is present. Bilateral hips were examined. The patient has no pain with log roll of the hips. Internal rotation to 30 degrees and external rotation to 30 degrees is painless. Negative FADIR. Left knee was examined today. The left knee is in valgus alignment. Range of motion 0 to 110 degrees. She is tender to palpation diffusely The right knee was also examined. Right knee incision is clean dry and intact. Range of motion is 0 to 105 degrees. However, there is a 30 degree extensor lag. The patella is felt to be superiorly migrated. The knee is no longer tender Right knee x-rays demonstrate a posterior stabilized total knee replacement good line position. However, the patella is migrated superiorly consistent with a patella tendon rupture Assessment and Plan Problem List (1) Degenerative arthritis of knee, bilateral: Status: Acute (2) Status post total right knee replacement: Status: Acute (3) Patellar tendon rupture: Status: Acute Plan: Janice is a pleasant 75-year-old female who is 4 months status post right total knee replacement. She did well up until 6 weeks ago where she appears to have a patella tendon rupture doing active straight leg raises. Right knee is no longer painful but it is weak. She had a patella tendon rupture diagnosed on x- rays. He wanted to proceed with nonoperative treatment rather than undergo a mesh reconstruction. We discussed the risk of this and the functional limitations at this point in close long-term. She does not want to undergo surgery of her right knee has happened to have pain-free but very recently given that she has a ruptured patellar tendon Plan We do not want her to do active physical therapy right now. We want her just to walk and we will see her back in 2 weeks and we will consider more aggressive physical therapy. Advanced Care Planning Discussion Advance care planning discussed with:: patient Office Procedures GNS Level of Care Nursing/Assessment Patient Status: Established Patient Nursing Assessment/Reassesment: Medication Reconciliation, Orthostatic Vitals, Update PMH in EMR and Vital Signs Coordination of Care: Complex Care and Chronic Disease 1-5, Education Complex Pt/Fam, Consent,records obtained, informed consent, Results/Orders obtained and Staff clarify orders Established Patient Charge Established Patient Point Assignment: 105 Established Patient Point Charge: EP Level 3 (80-115) MA Intake Visit Data Collection New Patient or Established: Established Patient (seen at [facility] within 3 years) Reason for Visit:: RT TKA F/U Seen by Clinical Staff ONLY (RN/MA): No Customer Strategy Manager Required: No PCP or OBGYN visit in last 3 months: Yes Hx Now: No Do You Feel Safe at Home: Yes Authorities Contacted: N/A Questionairres Past Medical History Past Medical History Have you ever been diagnosed with any of the following: Neurological Problems Seizures: No Cardiology Problems Congestive Heart Failure: No Respiratory Problems Chronic Obstructive Pulmonary Disease (COPD): No Smoking: No Smoking Cessation Counseling: No Smoking Exposure: No Stomache/Intestinal Problems Hepatitis: No Obesity: Yes Genital/Urinary Problems Renal Disease: No Kidney Stones: Yes Reproductive Problems Previous Pregnancies: Yes (3) Musculoskeletal Problems Arthritis: Yes Endocrine Problems Diabetes Mellitus Type 1: No Diabetes Mellitus Type 2: No Other Problems Hospitalization: Yes (surgery) Shingles: No Blood Transfusions: No Blood Transfusion Reaction: No Anesthesia Reactions: No Chicken Pox: Yes Measles: Yes Mumps: Yes Cancer: No Surgical History Total Knee Replacement: Yes (RIGHT 2024) Hysterectomy: Yes Subjective Visit Visit for: follow up visit and knee Immunization / Flu Flu Vaccine in the Last 12 Months: Yes Flu Vaccine Exclusion Criteria: Already Received History of Present Illness Chief complaint: Right total knee replacement Janice is now 4 months status post right total knee replacement. She is doing well. She reports that she was doing very well until 6 weeks ago when she was doing quad exercises in her recliner. She reports that she had a sudden increase in pain which has resolved somewhat. She is able to walk but reports her knee is weaker. She was found to have a patella tendon rupture. She has an extensor lag. We had a long discussion at the last visit and she elected not to proceed with surgery which would likely be a mesh reconstruction. She reports that her knee is no longer painful because of the knee replacement and she is okay with the weakness in her leg. She still ambulating and even cycles. She had an knee immobilizer locked in extension for 4 weeks Personal History Red flag PMH: none Pain Pain level (0-10): 0 Pain duration: 1 DAY Pain location: anterior Pain quality: burning and tingling Pain timing: night and increases with activity Associated signs & symptoms: stiffness Ambulatory data Ambulatory device: other (specify) (WHEEL CHAIR) Walking distance (minutes): 10 Treatments Number of previous injections: 6 Improvement with previous injections: No Number of Physical Therapy sessions: 2 Improvement with PT: No Improvement with NSAIDS: n/a Review of Systems Review of Systems: All systems negative unless otherwise noted in HPI.
[2025-06-12 15:08] VITALS: BP 121/74; PULSE 74; RESP 18; TEMP 36.7; O2SAT 94; BMI 35.1
== END 2025-06-12 15:20 | disposition home or self-care (01) ==
LOC: HODSRG 14:58
PROVIDERS: PCP Internal Medicine; Referring Provider Internal Medicine; Supervising Provider Orthopaedic Surgery Adult Reconstructive Orthopaedic Surgery; Visit Provider Orthopaedic Surgery Adult Reconstructive Orthopaedic Surgery
DX: M17.0 Bilateral primary osteoarthritis of knee (principal); Z96.651 Presence of right artificial knee joint; S86.819A Strain of other muscle(s) and tendon(s) at lower leg level, unspecified leg, initial encounter; X58.XXXA Exposure to other specified factors, initial encounter; E66.9 Obesity, unspecified; Z68.35 Body mass index [BMI] 35.0-35.9, adult; Z87.442 Personal history of urinary calculi
CPT/HCPCS: 99213; G0463

== ENCOUNTER 2025-07-19 10:56 | Outpatient (AMB) | payer MEDICARE, OTHER, SELFPAY ==
[2025-07-19 11:09] VITALS: BP 144/80; PULSE 75; RESP 19; TEMP 36.1; O2SAT 95; BMI 35.9
--- NOTE | 2025-07-19 11:09 | PD.ORTHCLVIS ---
Vital signs 07/19/25 11:09 Height 1.5 m Height Method Measured Weight 80.739 kg Weight Measurement Method Standing Scale BMI 35.9 BP 144/80 H Blood Pressure Source Automatic Cuff Blood Pressure Location Left Upper Arm Position Sitting Respiration 19 Pulse 75 Pulse Source Monitor Temp 97.0 F Temp Source Temporal Artery Scan Pulse Oximetry (%) 95 Oxygen Delivery Method Room Air Med/Allergies Allergies & Medications Allergies hydrochlorothiazide Allergy (Verified 07/19/25 11:10) lisinopril Allergy (Verified 07/19/25 11:10) triamterene Allergy (Verified 07/19/25 11:10) Medication Reconciliation cholecalciferol (vitamin D3) 125 mcg (5,000 unit) tablet (Vitamin D3) 125 mcg PO QDAY 01/11/25 [History Confirmed 07/19/25] cinnamon bark 500 mg capsule (Cinnamon) 500 mg PO QDAY 01/11/25 [History Confirmed 07/19/25] cyanocobalamin (vitamin B-12) 1,000 mcg/mL oral drops (Vitamin B-12) 1 ml PO QDAY 01/11/25 [History Confirmed 07/19/25] multivit with minerals-iron 18 mg-folic ac 400 mcg-vit K 25 mcg tablet (Adults Multivitamin) 1 tab PO DAILY 01/11/25 [History Confirmed 07/19/25] acetaminophen 500 mg tablet (Acetaminophen Extra Strength) 1,000 mg (2 x 500 mg) PO Q6H PRN pain #90 tabs 01/15/25 [Rx Confirmed 07/19/25] aspirin 81 mg tablet,delayed release 81 mg PO BID #60 tabs 01/15/25 [Rx Confirmed 07/19/25] doxycycline hyclate 100 mg tablet 100 mg PO BID #14 tabs 01/15/25 [Rx Confirmed 07/19/25] gabapentin 300 mg capsule 300 mg PO .qhs #30 caps 01/15/25 [Rx Confirmed 07/19/25] oxycodone 5 mg tablet 5 mg PO Q6H PRN pain #28 tabs 01/15/25 [Rx Confirmed 07/19/25] sennosides 8.6 mg-docusate sodium 50 mg tablet (Senna-S) 1 tab-cap PO QDAY #30 tabs 01/15/25 [Rx Confirmed 07/19/25] hydrocodone 5 mg-acetaminophen 325 mg tablet 1 tab PO Q6H PRN pain #28 tabs 02/13/25 [Rx Confirmed 07/19/25] amoxicillin 500 mg capsule 2,000 mg (4 x 500 mg) PO .once #16 caps 03/15/25 [Rx Confirmed 07/19/25] Exam Exam Breathing is nonlabored. Patient has a normal mood and affect. Bilateral extremities were evaluated and demonstrates sensation intact to light touch. Palpable pedal pulses are present. No significant edema is present. Bilateral hips were examined. The patient has no pain with log roll of the hips. Internal rotation to 30 degrees and external rotation to 30 degrees is painless. Negative FADIR. Left knee was examined today. The left knee is in valgus alignment. Range of motion 0 to 110 degrees. She is tender to palpation diffusely The right knee was also examined. Right knee incision is clean dry and intact. Range of motion is 0 to 105 degrees. However, there is a 15 degree extensor lag. The patella is felt to be superiorly migrated. The knee is no longer tender Right knee x-rays demonstrate a posterior stabilized total knee replacement good line position. However, the patella is migrated superiorly consistent with a patella tendon rupture Assessment and Plan Problem List (1) Degenerative arthritis of knee, bilateral: Status: Acute (2) Status post total right knee replacement: Status: Acute (3) Patellar tendon rupture: Status: Acute Plan: Janice is a pleasant 75-year-old female who is 6 months status post right total knee replacement Complicated by an extensor mechanism rupture. She did not want to undergo surgery as she has no pain and she was happy with her strength. Her left knee is actually what is limiting her. I discussed that I would like to hold off on doing a left knee replacement until we see where the right knee goes. We also discussed that in a mesh repair and she does not have evidence at this time Plan we will see the patient back in approximately 3 months routine follow-up Advanced Care Planning Discussion Advance care planning discussed with:: patient Office Procedures GNS Level of Care Nursing/Assessment Patient Status: Established Patient Nursing Assessment/Reassesment: Medication Reconciliation, Update PMH in EMR and Vital Signs Coordination of Care: Complex Care and Chronic Disease 1-5, Education Complex Pt/Fam, Consent,records obtained, informed consent, Results/Orders obtained and Staff clarify orders Special Needs: Language special needs Established Patient Charge Established Patient Point Assignment: 95 Established Patient Point Charge: EP Level 3 (80-115) MA Intake Visit Data Collection New Patient or Established: Established Patient (seen at [facility] within 3 years) Reason for Visit:: RT TKA F/U Seen by Clinical Staff ONLY (RN/MA): No Ash Conveyor Operator Required: No PCP or OBGYN visit in last 3 months: Yes Hx Now: No Do You Feel Safe at Home: Yes Authorities Contacted: N/A Questionairres Past Medical History Past Medical History Have you ever been diagnosed with any of the following: Neurological Problems Seizures: No Cardiology Problems Congestive Heart Failure: No Respiratory Problems Chronic Obstructive Pulmonary Disease (COPD): No Smoking: No Smoking Cessation Counseling: No Smoking Exposure: No Stomache/Intestinal Problems Hepatitis: No Obesity: Yes Genital/Urinary Problems Renal Disease: No Kidney Stones: Yes Reproductive Problems Previous Pregnancies: Yes (3) Musculoskeletal Problems Arthritis: Yes Endocrine Problems Diabetes Mellitus Type 1: No Diabetes Mellitus Type 2: No Other Problems Hospitalization: Yes (surgery) Shingles: No Blood Transfusions: No Blood Transfusion Reaction: No Anesthesia Reactions: No Chicken Pox: Yes Measles: Yes Mumps: Yes Cancer: No Surgical History Total Knee Replacement: Yes (RIGHT 2024) Hysterectomy: Yes Subjective Visit Visit for: follow up visit and knee Immunization / Flu Flu Vaccine in the Last 12 Months: Yes Flu Vaccine Exclusion Criteria: Already Received History of Present Illness Chief complaint: Right total knee replacement Janice is now 6months status post right total knee replacement. She is doing well. She had a patella tendon rupture and is actually very active currently. She does have a 10 degree extensor lag. She is walking with the assistance of a walker. She does not want to undergo a reoperation on the right. She is happy with how she is doing and reports the left knee is actually what is bothering her. She has no pain at all on the right Personal History Red flag PMH: none Pain Pain level (0-10): 7 Pain duration: 1 DAY Pain location: anterior Pain quality: burning and tingling Pain timing: night and increases with activity Associated signs & symptoms: stiffness Ambulatory data Ambulatory device: other (specify) (WHEEL CHAIR) Walking distance (minutes): 10 Treatments Number of previous injections: 6 Improvement with previous injections: No Number of Physical Therapy sessions: 2 Improvement with PT: No Improvement with NSAIDS: n/a Review of Systems Review of Systems: All systems negative unless otherwise noted in HPI.
== END 2025-07-19 11:35 | disposition home or self-care (01) ==
LOC: HODSRG 10:56
PROVIDERS: PCP Internal Medicine; Referring Provider Internal Medicine; Supervising Provider Orthopaedic Surgery Adult Reconstructive Orthopaedic Surgery; Visit Provider Orthopaedic Surgery Adult Reconstructive Orthopaedic Surgery
DX: Z47.1 Aftercare following joint replacement surgery (principal); Z96.651 Presence of right artificial knee joint; M17.12 Unilateral primary osteoarthritis, left knee
CPT/HCPCS: 99213; G0463